=== PATIENT | male | born 1950 | race Two or more races ===

== ENCOUNTER 2019-08-30 07:18 | Day surgery (SDC) | payer OTHER ==
[~2019-08-30] VITALS: Ht 170.2 cm; Wt 99.8 kg
[2019-08-30] VITALS (10 sets, daily range): BP systolic 134–154; BP diastolic 83–93
[~2019-08-30 07:18] MED LIST: LR 1000ml 1,000 ML IVLG SCH
--- NOTE | 2019-08-30 07:42 | Short Stay Surgery H&P ---
History of Present Illness History of Present Illness Chief Complaint Abdominal pains/GERD/history of Helicobacter infection WINDY Tovar is a 69 year old male who was admitted on for GERD Patient History Allergies: Coded Allergies: No Known Allergies (Unverified , 08/29/19) PAST MEDICAL HISTORY: (1) Hypertension (2) Hyperlipidemia (3) Diabetes Review of Systems Cardiovascular: Reports: hypertension Respiratory: Reports: no symptoms Skeletal: Reports: trauma Gastrointestinal: Reports: gastro esophageal reflux disease Genitourinary: Reports: no symptoms Neurologic: Reports: no symptoms Endocrine: Reports: diabetes - type 2 Hematologic: Reports: no symptoms Physical Exam Skin: normal HENT: normal Heart: normal Lungs: normal Abdomen: abnormal Extremities: normal Genitourinary: normal Plan Plan of Care Upper GI endoscopy with gastric biopsy Preop Interventions None. Summary of Findings See the reports Attestation Are the patient's medical conditions optimized for surgery? Attestation Response: yes Gabriella Bee MD Aug 30, 2019 07:42
--- NOTE | 2019-08-30 07:43 | Pre-Procedure Note/Attestation ---
Pre-Procedure Note/Attestation Complete Prior to Procedure Planned Procedure: left Procedure Narrative: Examination of the upper GI. tract via endoscopy Indications for Procedure Pre-Operative Diagnosis: R/O Gastritis/Peptic Ulcer/esophagitis Attestation I attest that I discussed the nature of the procedure; its benefits; risks and complications; and alternatives (and the risks and benefits of such alternatives ), prior to the procedure, with the patient (or the patient's legal customer sales representative). I attest that, if there was a reasonable possibility of needing a blood transfusion, the patient (or the patient's legal customer sales representative) was given the [place] Department [employer] standardized written summary, pursuant to the Lamine Shubham Blood Safety Act ([place] Health and Safety Code # 1645, as amended). I attest that I re-evaluated the patient just prior to the surgery and that there has been no change in the patient's H&P, except as documented below: Gabriella Bee MD Aug 30, 2019 07:42
[2019-08-30] MEDS ORDERED: LR 1000ml ONE (08:00)
[2019-08-30] MEDS ORDERED: Propofol 200mg/20ml IV ONE (08:00)
[2019-08-30] MEDS ORDERED: Lidocaine 1% MPF 10mg/ml 5ml ONE (08:00)
[2019-08-30] MEDS ORDERED: METFORMIN HCL500 M1 ORAL (08:05)
[2019-08-30] MEDS ORDERED: FLOMAX0.4 MG ORAL (08:05)
[2019-08-30] MEDS ORDERED: BP MED PO (08:09)
[2019-08-30] MEDS ORDERED: CHOLESTEROL MED PO (08:09)
--- NOTE | 2019-08-30 08:47 | Anethesia Preoperative Eval ---
Anesthesia Pre-op PMH/ROS General Date of Evaluation: Aug 30, 2019 Time of Evaluation: 08:10 Anesthesiologist: Silvia Britton CRNA ASA Score: ASA 3 Mallampati Score Class I : Soft palate, uvula, fauces, pillars visible Class II: Soft palate, uvula, fauces visible Class III: Soft palate, base of uvula visible Class IV: Only hard plate visible Mallampati Classification: Class III Surgeon: Rohit Diagnosis: GERD Surgical Procedure: EGD Anesthesia History: none Social History: smoking Family History: no anesthesia problems Allergies: Coded Allergies: No Known Allergies (Unverified , 08/30/19) Medications: see eMAR Patient NPO?: Yes NPO Date: Aug 30, 2019 NPO Time: 00:00 Past Medical History Cardiovascular: Reports: HTN; Denies: CAD, [place], valve dz, arrhythmia, other Pulmonary: Reports: other - snoring without apnea; Denies: asthma, COPD, JAMIE Gastrointestinal/Genitourinary: Reports: GERD; Denies: CRI, ESRD, other Neurologic/Psychiatric: Denies: dementia, CVA, depression/anxiety, TIA, other Endocrine: Reports: DM; Denies: hypothyroidism, steroids, other HEENT: Reports: cataract (L), cataract (R); Denies: glaucoma, PAIMIUT (L), PAIMIUT (R), other Hematology/Immune: Denies: anemia, DVT, bleeding disorder, other Musculoskeletal/Integumentary: Reports: OA; Denies: RA, DJD, DDD, edema, other Other: obesity PMH Narrative: as noted above PSxH Narrative: see H & P Anesthesia Pre-op Phys. Exam Physician Exam Last Vital Signs Date Time Temp Pulse Resp B/P (MAP) Pulse Ox O2 Delivery O2 Flow Rate FiO2 08/30/19 08:00 Room Air 08/30/19 07:55 98.2 83 18 142/88 98 Constitutional: NAD Neurologic: other - alert & oriented x 3 Cardiovascular: RRR Respiratory: CTA Gastrointestinal: S/NT/ND Airway Exam Mallampati Score: Class III MO: full Neck: short thick neck TMD: > 3FB ROM: full Teeth: missing Dentures: upper Anesthesia Pre-op A/P Labs Accucheck 111 Risk Assessment & Plan Assessment: ASA 3, ok to proceed Plan: MAC Status Change Before Surgery: No Pre-Antibiotics Given Within 1 Hr of Incision: No Silvia Britton CRNA Aug 30, 2019 08:47
--- NOTE | 2019-08-30 08:48 | Immediate Post-Op Evaluation ---
Immediate Post-Op Evalulation Immediate Post-Op Evalulation Procedure: EGD with biopsies Date of Evaluation: Aug 30, 2019 Time of Evaluation: 08:45 IV Fluids: LR 100 ml Blood Pressure Systolic: 135 Blood Pressure Diastolic: 83 Pulse Rate: 73 Respiratory Rate: 16 O2 Sat by Pulse Oximetry: 100 Temperature (Fahrenheit): 97.3 Pain Score (1-10): 0 Nausea: No Vomiting: No Complications none Patient Status: awake, patent Hydration Status: adequate Given Within 1 Hr of Incision: Silvia Mendiola CRNA Aug 30, 2019 08:48
--- NOTE | 2019-08-30 09:47 | Endoscopy Procedure Note ---
Endoscopy Procedure Note General Indication for Procedure: Abdominal pains/GERDs Procedures Performed: EGD - Moderate gastritis/antritis, biopsy obtained from antrum and midbody of the stomach. Specimen: yes Pt Tolerated Procedure Well: Yes Anesthesia Anesthesiologist: Silvia Britton CRNA Anesthesia: moderate sedation Medications Medication Given: see anesthesia record Inserted Devices Implant(s) used?: No Quality Quality of Bowel Preparation: Excellent Was there any complications?: No GI Core Measures 50 yrs or older w/o bx or poly: Not Applicable 10yrs. F/U recommended: Not Applicable If not recommended, why?: Med reason:<3 yrs.: System Reason:<3 yrs.: Gabriella Bee MD Aug 30, 2019 09:47
--- NOTE | 2019-08-30 09:48 | Discharge Instructions ---
Discharge Instructions Discharge Instructions Follow up with: See the doctor in office after 2 weeks For Congestive Heart Failure Reminder Report to your physician any weight gain of 5 pounds or more in one week. Gabriella Bee MD Aug 30, 2019 09:48
--- NOTE | 2019-08-30 11:29 | 48 Hour Post Anesthesia Eval ---
Post Anesthesia Evaluation Procedure: EGD with biopsies Date of Evaluation: Aug 30, 2019 Time of Evaluation: 11:28 Blood Pressure Systolic: 144 0: 83 Pulse Rate: 72 Respiratory Rate: 18 Temperature (Fahrenheit): 97.4 O2 Sat by Pulse Oximetry: 98 Airway: patent Nausea: No Vomiting: No Pain Intensity: 0 Hydration Status: adequate Cardiopulmonary Status: stable Mental Status/LOC: patient returned to baseline Follow-up Care/Observations: per GI Post-Anesthesia Complications: none Follow-up care needed: N/A Silvia Britton CRNA Aug 30, 2019 11:28
--- NOTE | 2019-08-30 13:45 | History and Physical Report ---
DATE OF ADMISSION: 08/30/2019 HISTORY OF PRESENT ILLNESS: The patient is a 69-year-old gentleman, who is being seen prior to undergoing the procedure of upper GI endoscopy for which he has been scheduled to receive for evaluation of his upper GI symptoms that he has been suffering subsequent to his work injury. The patient reports to me that he is still suffering from experiencing pain over the upper part of the abdomen, especially epigastric area and sometimes radiates being towards his chest. There is significant amount of heartburn consistent with gastroesophageal acid reflux, but he denies having any nausea, vomiting, or bleeding such as hematemesis, melena, hematochezia. He reports that subsequent to his work injury that he was lifting heavy boxes and injured his lower back area. He was started on multiple medications including strong analgesics and nonsteroidal anti-inflammatory agents that he took for a long period of time and gradually he developed the symptoms. He denies having any history of weight loss and his appetite seems to be normal. The medication that he has been taking basically has been like Motrin and naproxen and occasionally Tylenol currently, but in the past he was taking significant amount of these medications subsequent to his work injury. He has been seen by multiple physicians as well including acute care clinical nurse specialist and followed at [facility] too. In the past, he has been also receiving his medication such as Protonix to control the gastroesophageal reflux. He also reports to me that he has frequent bowel movements approximately 3 to 4 times a day with periods of diarrhea. Also when I examined the patient medical record, which revealed that he had been seen at [place] under the care of Dr. Talley, who reported that the applicant has had history of Helicobacter pylori infection, but I am not sure if he has been adequately treated in the past. PAST MEDICAL HISTORY: The patient has a history of hypertension, hyperlipidemia, diabetes mellitus type 2. Also has had history of carpal tunnel syndrome. SURGICAL HISTORY: None. ALLERGIES: None. FAMILY HISTORY: None significant. REVIEW OF SYSTEMS: Basically history of present illness. He has been experiencing pain over different parts of the body especially lower back area subsequent to his work injury. However, he denies having any particular chest pain, shortness of breath, urinary symptoms, etc., at this time. PHYSICAL EXAMINATION: GENERAL: Reveals alert, oriented, very pleasant gentleman, does not seem to be in any acute distress. He looks overweight. VITAL SIGNS: Temperature afebrile 98.2, pulse rate 83 per minute, respiration 18 per minute, blood pressure 142/88, oxygen saturation on room air 98%, height 170.18 cm, weight 99.79 kg, BMI 34.5. HEENT: Normocephalic. Pupils equal in size and reactive to light and accommodation. No visible jaundice. Buccal cavity, tongue midline, well hydrated. No ulcers. NECK: Supple. No JVD, thyromegaly, or adenopathy. CHEST: Clear to auscultation and percussion. No rales or rhonchi. HEART: S1, S2 normal. Regular rhythm. No gallops or murmur. ABDOMEN: Obese, but soft. There are areas of the tenderness in all angles of the abdomen, particularly over the epigastric area. There is no hepatosplenomegaly. Bowel sounds are present. No palpable mass noted. EXTREMITIES: Within normal limits. CENTRAL NERVOUS SYSTEM: Within normal limits. PRELIMINARY PREOPERATIVE IMPRESSION: 1. Epigastric pain consistent with chronic gastroesophageal reflux, rule out NSAID-induced gastropathy such as peptic ulcer disease, gastritis, duodenal ulcer, esophagitis caused by NSAID medications. 2. Generalized abdominal pain along with intermittent diarrhea associated with constipation consistent with underlying irritable bowel syndrome. 3. History of bodily injury, orthopedic diagnosis. 4. Hypertension. 5. Diabetes mellitus. 6. Hyperlipidemia. 7. Obesity. 8. Anxiety. RECOMMENDATIONS: The applicant was seen, at this time seems to be quite stable to undergo the procedure of upper GI endoscopy for which he has been scheduled and authorized. He understands the risks and benefits and will sign the consent. Said Junior Bee DR: PEG JOB#: [id number] CC: HOMA
--- NOTE | 2019-08-30 14:45 | Operative Note - Dictated ---
DATE OF OPERATION: 08/30/2019 SURGEON: Gabriella Bee M.D. PROCEDURE: Esophagogastroduodenoscopy with biopsy. PREOPERATIVE DIAGNOSIS: Abdominal pain, epigastric pain, diarrhea, chest pain, gastroesophageal acid reflux, rule out gastritis, peptic ulcer disease. POSTOPERATIVE DIAGNOSIS: Moderate generalized gastritis with major inflammatory process in the antrum. Biopsy was taken from the antral area and mid body of the stomach. MEDICATION USED: Silvia Britton CRNA, shipper/receiver. INSTRUMENT: GIF Olympus upper GI video endoscope. DESCRIPTION OF PROCEDURE: The patient after arriving an endoscopy unit, was told about risks and benefits of the procedure, which he accepted and signed the informed consent. At this time, he was put on the left lateral decubitus position. After adequate IV sedation, the scope was gently passed through the cricopharyngeal area, was lodged into the upper esophagus and was gradually advanced towards gastroesophageal junction. The entire length of esophagus looked normal. No evidence of inflammatory process, ulceration, exudative reactions, etc. was found. There was no varices etc. No strictures found. The scope gradually advanced towards gastroesophageal junction, which revealed completely normal finding without any evidence of Colon's or hiatal hernia. At this time, the scope was advanced into the stomach, gastric cavity was distended with insufflation of air. Gradually, the areas of the upper and mid and lower part of the stomach were examined and there was evidence of moderate inflammatory process presenting with erythema and edema of the gastric fold particularly over the prepyloric and antral area. At this time, the retroflex maneuver was done and scope was advanced towards the gastroesophageal junction, which revealed normal findings. No particular ulcerations or tumors or polyp was found. Finally, one biopsy from mid body and another one from the antral area was obtained and subsequently scope was passed through the pylorus. First and second portion of duodenum were found to be completely normal. At this point, the scope was pulled out and the procedure was terminated. The patient tolerated the procedure well and left the endoscopy room in a good condition. Gabriella Bee M.D. DR: PEG JOB#: [id number] CC:
== END 2019-08-30 09:45 | disposition home or self-care (01) ==
LOC: SUR 07:18
DX: K29.50 Unspecified chronic gastritis without bleeding (principal); K21.9 Gastro-esophageal reflux disease without esophagitis; E11.9 Type 2 diabetes mellitus without complications; E78.5 Hyperlipidemia, unspecified; I10 Essential (primary) hypertension; M19.90 Unspecified osteoarthritis, unspecified site; E66.9 Obesity, unspecified; Z68.34 Body mass index [BMI] 34.0-34.9, adult
CPT/HCPCS: 43239; 82962; J2704; J7120; 94003; 94150